=== PATIENT | male | born 2000 | race African-American/Black ===

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

== ENCOUNTER 2025-05-05 03:17 | Emergency (ER) | payer MEDICAID, SELFPAY ==
[2025-05-05 04:43] LABS: Bacteria/HPF None Seen HPF (None Seen); CAUTI Indications for Culture Dysuria,urgency,freq; Glucose, Urine (Dipstick) Normal (Negative); Leukocyte 75 Leu/uL (Negative); Protein, Urine (Dipstick) 20 mg/dL (Neg-Trace); RBC/HPF 0-3 HPF (0-3); Specific Gravity, Urine 1.039 (1.002-1.036); WBC/HPF 21-50 HPF (0-3)
[2025-05-05 04:50] LABS: Urine Culture Reflex Yes Yes
[2025-05-05] MEDS ORDERED: cefTRIAXone (ROCEPHIN) 500 MG VIAL ONE (04:59)
[2025-05-06 05:57] LABS: Chlam.trachomatis by PCR,Urine Not Detected (NotDetected); GC N.gonorrhoeae PCR,UrineVOID Not Detected (NotDetected)
== END 2025-05-05 05:30 | disposition home or self-care (01) ==
LOC: ERS 03:17
DX: N34.2 Other urethritis (principal)
CPT/HCPCS: 81001; 87086; 87491; 87591; 96372; 99283; J0696